=== PATIENT | male | born 1975 | race Two or more races ===

== ENCOUNTER 2021-04-06 11:15 | Inpatient (IN) | payer OTHER ==
[~2021-04-06] VITALS: Ht 172.7 cm; Wt 77.1 kg
[2021-04-06] MEDS ORDERED: TOPROL XL50 M1 PO (13:13)
== END 2021-04-21 17:46 | disposition home or self-care (01) | DRG 329 ==
LOC: O/R 04-11 08:20 → SURG 04-11 08:20 → SURH 04-11 11:00 → SURG 04-11 16:05 → SURH 04-15 12:52
PROVIDERS: ADMIT Colon & Rectal Surgery; ATTEND Colon & Rectal Surgery
PROC: 0DTP4ZZ Resection of Rectum, Percutaneous Endoscopic Approach (ICD-10-PCS; 2021-04-11)
PROC: 0D1B4Z4 Bypass Ileum to Cutaneous, Percutaneous Endoscopic Approach (ICD-10-PCS; 2021-04-11)
PROC: 0DBN4ZZ Excision of Sigmoid Colon, Percutaneous Endoscopic Approach (ICD-10-PCS; principal; 2021-04-11 11:00)
PROC: 3E0F7SF Introduction of Other Gas into Respiratory Tract, Via Natural or Artificial Opening (ICD-10-PCS; 2021-04-12)
PROC: 4A12X4Z Monitoring of Cardiac Electrical Activity, External Approach (ICD-10-PCS; 2021-04-12)
PROC: 02HV33Z Insertion of Infusion Device into Superior Vena Cava, Percutaneous Approach (ICD-10-PCS; 2021-04-14)
PROC: 8E0ZXY6 Isolation (ICD-10-PCS; 2021-04-17)
DX: K57.20 Diverticulitis of large intestine with perforation and abscess without bleeding (principal); K65.0 Generalized (acute) peritonitis; N17.8 Other acute kidney failure; Z16.12 Extended spectrum beta lactamase (ESBL) resistance; K56.690 Other partial intestinal obstruction; I13.10 Hypertensive heart and chronic kidney disease without heart failure, with stage 1 through stage 4 chronic kidney disease, or unspecified chronic kidney disease; N18.2 Chronic kidney disease, stage 2 (mild); R33.8 Other retention of urine; B96.29 Other Escherichia coli [E. coli] as the cause of diseases classified elsewhere; Z85.528 Personal history of other malignant neoplasm of kidney

== ENCOUNTER 2021-08-14 09:15 | Inpatient (IN) | payer OTHER ==
[~2021-08-14] VITALS: Ht 172.7 cm; Wt 81.6 kg
[~2021-08-14 09:15] MED LIST: TOPROL XL50 M1 PO
== END 2021-09-01 14:24 | disposition home or self-care (01) | DRG 348 ==
LOC: SURH 08-16 09:15 → O/R 08-30 08:54 → SURH 08-30 19:19
PROVIDERS: ADMIT Colon & Rectal Surgery; ATTEND Colon & Rectal Surgery
PROC: 0DBB4ZZ Excision of Ileum, Percutaneous Endoscopic Approach (ICD-10-PCS; principal; 2021-08-30 11:00)
DX: K57.20 Diverticulitis of large intestine with perforation and abscess without bleeding (principal); K92.1 Melena; I11.9 Hypertensive heart disease without heart failure; N18.2 Chronic kidney disease, stage 2 (mild); I12.9 Hypertensive chronic kidney disease with stage 1 through stage 4 chronic kidney disease, or unspecified chronic kidney disease; Z20.822 Contact with and (suspected) exposure to COVID-19

== ENCOUNTER 2021-08-22 08:09 | Outpatient (CLI) | payer OTHER | END 2021-08-22 08:13 | disposition home or self-care (01) | LOC: RX STUDY 08:09 | PROVIDERS: ATTEND Colon & Rectal Surgery | DX: K57.32 Diverticulitis of large intestine without perforation or abscess without bleeding (principal) ==